=== PATIENT | female | born 1990 | race African-American/Black ===

== ENCOUNTER 2024-03-25 09:20 | Emergency (ER) | payer OTHER ==
[~2024-03-25] VITALS: Ht 165.1 cm; Wt 90.7 kg
[2024-03-25 09:28] VITALS: PULSE 78; RESP 18; TEMP 97.9; O2SAT 99
[2024-03-25] MEDS: FLUORESCEIN SOD(OPTH) 1 MG STRP OP ONE (09:47)
[2024-03-25] MEDS: SODIUM CHLORIDE FLUSH 10 ML SYR IV ONE (09:47)
[2024-03-25] MEDS: ERYTHROMYCIN (OPTH) 3.5 GM OINT OP ONE (09:48)
[2024-03-25] MEDS: TETRACAINE HCL 0.5% OPTH SOLN 4 ML BTL OP ONE (09:48)
== END 2024-03-25 10:10 | disposition home or self-care (01) ==
LOC: FSED 09:25
DX: H18.821 Corneal disorder due to contact lens, right eye (principal)
CPT/HCPCS: 99283; J7030

== ENCOUNTER 2024-12-26 20:44 | Emergency (ER) | payer OTHER ==
[~2024-12-26] VITALS: Ht 165.1 cm; Wt 96.6 kg
[2024-12-26 20:47] VITALS: PULSE 93; RESP 20; TEMP 98.6
[2024-12-26] MEDS: BACITRACIN ZINC 0.9GM TP ONE (21:12)
[2024-12-26] MEDS: TETANUS/DIPHTHERIA TOX ADULT 0.5 ML SYR IM ONE (21:13)
[2024-12-26 21:15] VITALS: BP 135/75; PULSE 93; RESP 20; TEMP 98.6; O2SAT 97
== END 2024-12-26 21:22 | disposition home or self-care (01) ==
LOC: FSED 21:03
DX: S80.811A Abrasion, right lower leg, initial encounter (principal); W54.1XXA Struck by dog, initial encounter; Y99.0 Civilian activity done for income or pay
CPT/HCPCS: 90471; 90714; 96372; 99284